=== PATIENT | female | born 1930 | race Hispanic/Latino ===

== ENCOUNTER 2019-10-11 12:53 | Observation (INO) | payer MEDICARE ==
[~2019-10-11] VITALS: Ht 162.6 cm; Wt 50.8 kg
[2019-10-11 13:36] LABS: BASOPHILS % (AUTO) 0.3 % (0.0-5.0); EOSINOPHILS % (AUTO) 2.6 % (0.0-8.0); HEMATOCRIT 34.8 % (36-48); LYMPHOCYTES % (AUTO) 15.7 % (21.0-51.0); MEAN CORPUSCULAR HGB CONC 35.9 g/dL (32.0-36.0); MEAN CORPUSCULAR VOLUME 100.3 fL (79-99); MONOCYTES % (AUTO) 6.2 % (3.0-13.0); NEUTROPHILS % (AUTO) 74.4 % (40.0-77.0); PLATELET COUNT (AUTO) 163 K/uL (130-400); RED BLOOD CELL COUNT(AUTO) 3.47 MIL/uL (4.00-5.50); WHITE BLOOD COUNT (AUTO) 7.6 K/uL (4.8-10.8)
[2019-10-11 13:46] LABS: CREATININE 0.8 mg/dL (0.5-1.5); POTASSIUM 3.5 mmol/L (3.5-5.1)
[2019-10-11 13:50] LABS: INR 1.04 (0.85-1.15); PARTIAL THROMBOPLASTIN TIME 29.2 SEC (26.3-35.5); PROTHROMBIN TIME 11.2 SEC (9.6-11.6)
[2019-10-11] MEDS ORDERED: HYDRALAZINE HCL 20 MG/ML VIAL ONE ×2 (14:42→19:50)
[2019-10-11] MEDS ORDERED: PANTOPRAZOLE 40 MG/VIAL IVP SCH (16:14)
[2019-10-11] MEDS ORDERED: HYDRALAZINE HCL 20 MG/ML VIAL IV PRN (16:15)
[2019-10-12] MEDS ORDERED: HYDRALAZINE HCL 20 MG/ML VIAL ONE (09:34)
--- NOTE | 2019-10-12 13:30 | NUR ---
INITIAL SW spoke with patient's daughter, Joanne Stokes. Patient lives with daughter. She has no home services. DME: rollator, wheelchair, shower chair. Patient needs help with ADL's and does not drive. Family assist with transportation and ADL's. PCP is Dr. North Stokes. Pharmacy is [facility] located in [place]. DCP is home. No safety issues voiced by family. Addendum: 10/12/19 at 1334 by MAGED ALMONTE SS Amended: Links added.
--- NOTE | 2019-10-12 13:35 | NUR ---
Alternate Emergency Contact Shilo Stokes (son-in-law) -
== END 2019-10-12 13:42 | disposition home or self-care (01) ==
LOC: EDH 12:53 → EDHIP 15:56
PROVIDERS: ADMIT Internal Medicine; ATTEND Internal Medicine
DX: S06.2X0A Diffuse traumatic brain injury without loss of consciousness, initial encounter (principal); F02.80 Dementia in other diseases classified elsewhere, unspecified severity, without behavioral disturbance, psychotic disturbance, mood disturbance, and anxiety; E03.9 Hypothyroidism, unspecified; D63.8 Anemia in other chronic diseases classified elsewhere; G30.9 Alzheimer's disease, unspecified; H18.419 Arcus senilis, unspecified eye; I10 Essential (primary) hypertension; Z85.038 Personal history of other malignant neoplasm of large intestine; Z86.79 Personal history of other diseases of the circulatory system; W18.39XA Other fall on same level, initial encounter; Y93.89 Activity, other specified; Y92.89 Other specified places as the place of occurrence of the external cause; Y99.8 Other external cause status
CPT/HCPCS: 36415; 70450; 80048; 82550; 84484; 85025; 85610; 85730; 86850; 86900; 86901; 93005; 99291; C9113; G0378 ×10; J0360 ×3

== ENCOUNTER → 2019-10-11 | Outpatient (CLI) | payer MEDICARE | END | disposition home or self-care (01) | LOC: RAH 07:27 | PROVIDERS: ATTEND Family Medicine | DX: G93.5 Compression of brain (principal); F03.90 Unspecified dementia, unspecified severity, without behavioral disturbance, psychotic disturbance, mood disturbance, and anxiety | CPT/HCPCS: 70551 ==